=== PATIENT | female | born 1955 | race Caucasian/White ===

== ENCOUNTER → 2016-07-21 | Outpatient (CLI) | payer OTHER ==
[~2016-07-21] MED LIST: HYDR12.55 PO; LEVO75TA5 PO
== END | disposition home or self-care (01) ==
LOC: C.LAB 09:30
PROVIDERS: ATTEND Family Medicine
DX: E03.9 Hypothyroidism, unspecified (principal)

== ENCOUNTER → 2016-07-26 | Outpatient (CLI) | payer OTHER | END | disposition home or self-care (01) | LOC: C.CPL 11:16 | PROVIDERS: ATTEND Family Medicine | DX: Z13.6 Encounter for screening for cardiovascular disorders (principal); Z29.9 Encounter for prophylactic measures, unspecified ==

== ENCOUNTER → 2017-02-09 | Outpatient (CLI) | payer OTHER ==
--- NOTE | 2017-02-10 13:57 | MAMMOGRAPHY REPORT ---
BILATERAL DIGITAL SCREENING MAMMOGRAM TOMOSYNTHESIS WITH CAD: 02/09/2017 CLINICAL HISTORY: Routine screening. Patient has no complaints. TECHNIQUE: Breast tomosynthesis in addition to standard 2D mammography was performed. Current study was also evaluated with a Computer Aided Detection (CAD) system. COMPARISON: Comparison is made to exams dated: 02/10/2015 mammogram, 02/17/2014 mammogram, 08/05/2013 ma mmogram, 07/24/2013 mammogram, 07/18/2012 mammogram, and 07/15/2011 mammogram - [facility] Zoila Herring. BREAST COMPOSITION: The tissue of both breasts is heterogeneously dense, which may obscure small mas ses. FINDINGS: No suspicious masses, calcifications, or areas of architectural distortion are noted in ei ther breast. There has been no significant interval change compared to prior exams. A biopsy marker clip is noted in the left upper outer quadrant. IMPRESSION: ACR BI-RADS CATEGORY 2: BENIGN There is no mammographic evidence of malignancy. A 1 year screening mammogram is recommended. The pa tient will receive written notification of the results. Approximately 10% of breast cancers are not detected with mammography. A negative mammographic report should not delay biopsy if a clinically suggestive mass is present. Lisandra Garcia M.D. /:02/09/2017 15:54:27 [employer]: Rosa Gray [facility] letter sent: Normal 1/2 BI-RADS Code: ACR BI-RADS Category 2: Benign
== END | disposition home or self-care (01) ==
LOC: C.MAMM 12:56
PROVIDERS: ATTEND Physician Assistant
DX: Z12.31 Encounter for screening mammogram for malignant neoplasm of breast (principal); M85.9 Disorder of bone density and structure, unspecified

== ENCOUNTER → 2017-04-25 | Outpatient (CLI) | payer OTHER ==
[2017-04-25 13:08] LABS: BASO % 1.1 %; BASO ABS # 0.06 K/uL (0-0.2); COMPLETE YES; EOS % 2.9 %; HEMATOCRIT 37.3 % (37-47); LYMPH % 32.7 %; LYMPH ABS # 1.82 K/uL (1.2-3.4); MEAN CELL VOLUME 85.6 fL (80-100); MEAN CORPUSCULAR HEMOGLOBIN 28.7 pg (25-34); MEAN CORPUSCULAR HGB CONC 33.5 g/dl (32-36); MEAN PLATELET VOLUME 12.4 fL (7.4-10.4); MONO % 7.2 %; NEUT % 56.1 %; PLATELET COUNT 229 K/uL (130-400); RED BLOOD COUNT 4.36 M/uL (4.2-5.4); WHITE BLOOD COUNT 5.56 K/uL (4.8-10.8)
[2017-04-25 14:13] LABS: ALT/SGPT 25 U/L (12-78); BLOOD UREA NITROGEN 15 mg/dl (7-18); BUN/CREATININE RATIO 28.4 (10-20); CALCIUM 9.3 mg/dl (8.5-10.1); CARBON DIOXIDE 29 mmol/L (21-32); CHLORIDE 103 mmol/L (98-107); CHOLESTEROL 264 mg/dl (0-200); CREATININE 0.52 mg/dl (0.60-1.20); GLUCOSE 92 mg/dl (70-99); POTASSIUM 3.4 mmol/L (3.5-5.1); SODIUM 140 mmol/L (136-145); TRIGLYCERIDES 77 mg/dl (0-150); VERY LOW DENSITY LIPOPROT CALC 15 mg/dl
[2017-04-25 14:24] LABS: ALB/GLOB RATIO 1.4 (0.9-2); ALKALINE PHOSPHATASE 64 U/L (45-117); AST/SGOT 18 U/L (15-37); CHOLESTEROL/HDL RATIO 3.8; HDL CHOLESTEROL 69 mg/dl; LDL CHOLESTEROL CALCULATED 180 mg/dl; THYROID STIMULATING HORMONE 0.793 uIu/ml (0.300-4.500)
== END | disposition home or self-care (01) ==
LOC: C.LABBC 10:19
PROVIDERS: ATTEND Neuromusculoskeletal Medicine & OMM
DX: Z00.00 Encounter for general adult medical examination without abnormal findings (principal); I10 Essential (primary) hypertension; E03.9 Hypothyroidism, unspecified

== ENCOUNTER → 2017-06-22 | Outpatient (CLI) | payer OTHER ==
--- NOTE | 2017-06-22 19:04 | DIAGNOSTIC IMAGING REPORT ---
L LOWER EXT JOINT WITHOUT CLINICAL HISTORY: 62 years-old Female presenting with LT ANKLE PAIN/SWELLING, R/O INFECTION. TECHNIQUE: Multisequence, multiplanar MR imaging of the left ankle was performed without the use of intravenous contrast. IV contrast: None. COMPARISON: Plain radiographs from 06/21/2017. FINDINGS: Localizer images: Unremarkable. Subcutaneous edema noted at the level of the ankle mortise along the medial, dorsal, and lateral aspects and extending into the dorsal lateral mid and forefoot. No bony edema although cystic change is noted within the medial malleolus and medial talus. There is full-thickness cartilage loss of the ankle mortise with deformity of the tibial plafond and secondary to degenerative change. Osteophytosis noted. Chronic avulsion fracture of the inferior pole of the lateral malleolus suspected. Small joint effusion. Fluid noted in the calcaneonavicular joint. Anterior and posterior tibiofibular ligaments intact. Anterior and posterior calcaneofibular ligaments intact. Anterior and peroneal tendons intact. Trace fluid noted along the posterior tendons possibly indicating mild synovitis involving all 3 tendons. Abnormal signal intensity and irregularity of the deltoid ligament suggesting tear. Calcaneonavicular ligament intact. Achilles tendon and plantar fascia normal. No infiltration of the sinus tarsi. Muscular edema noted in both the anterior and posterior compartments of the lower leg. IMPRESSION: 1. 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 2. 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 3. Chronic avulsion fracture of the inferior pole of the lateral malleolus suspected. 4. Small joint effusion. 5. Possible mild tenosynovitis of the posterior tendons. Electronically signed by: Connor Ackerman M.D. 06/22/2017 7:00 PM Dictated Date/Time: 06/22/2017 6:43 PM
== END | disposition home or self-care (01) ==
LOC: C.MRI 17:09
PROVIDERS: ATTEND Orthopaedic Surgery
DX: S93.422A Sprain of deltoid ligament of left ankle, initial encounter (principal); X58.XXXA Exposure to other specified factors, initial encounter; M25.872 Other specified joint disorders, left ankle and foot

== ENCOUNTER → 2018-02-08 | Outpatient (CLI) | payer OTHER ==
[2018-02-08 11:41] LABS: ALBUMIN 3.9 gm/dl (3.4-5.0); ALKALINE PHOSPHATASE 71 U/L (45-117); ALT/SGPT 27 U/L (12-78); AST/SGOT 16 U/L (15-37); BLOOD UREA NITROGEN 16 mg/dl (7-18); CALCIUM 8.9 mg/dl (8.5-10.1); CARBON DIOXIDE 29 mmol/L (21-32); CHOLESTEROL 199 mg/dl (0-200); CREATININE 0.59 mg/dl (0.60-1.20); GLUCOSE 88 mg/dl (70-99); LDL CHOLESTEROL CALCULATED 121 mg/dl; POTASSIUM 3.6 mmol/L (3.5-5.1); SODIUM 139 mmol/L (136-145); TOTAL PROTEIN 6.9 gm/dl (6.4-8.2)
== END | disposition home or self-care (01) ==
LOC: C.LABBC 08:32
PROVIDERS: ATTEND Neuromusculoskeletal Medicine & OMM
DX: I10 Essential (primary) hypertension (principal); E03.9 Hypothyroidism, unspecified; E78.5 Hyperlipidemia, unspecified

== ENCOUNTER → 2018-02-12 | Outpatient (CLI) | payer OTHER ==
--- NOTE | 2018-02-13 14:57 | MAMMOGRAPHY REPORT ---
BILATERAL DIGITAL SCREENING MAMMOGRAM TOMOSYNTHESIS WITH CAD: 02/12/2018 CLINICAL HISTORY: Routine screening. TECHNIQUE: The study was acquired using full field digital technology and interpreted from soft copy. Breast tomosynthesis in addition to standard 2D mammography was performed. Current study was also ev aluated with a Computer Aided Detection (CAD) system. COMPARISON: Comparison is made to exams dated: 02/09/2017 mammogram - [facility], mammogram, 02/17/2014 mammogram, 07/24/2013 mammogram, 07/18/2012 mammogram, and 07/15/2011 mamm ogram - [facility]. BREAST COMPOSITION: The tissue of both breasts is heterogeneously dense, which may obscure small mass es. FINDINGS: There is a stable metallic biopsy marker clip in the upper outer left breast and a stable b enign coarse calcification in the approximate 9:00 anterior left breast. No new suspicious mass, arch itectural distortion or cluster of microcalcifications is seen. IMPRESSION: ACR BI-RADS CATEGORY 1: NEGATIVE There is no mammographic evidence of malignancy. A 1 year screening mammogram is recommended.( [id number]) The patient will receive written notification of the results. Some breast cancers are not detected with mammography. A negative mammographic report should not fermin y biopsy if a clinically suggestive mass is present. Zeinab Arteaga M.D. ay/:02/12/2018 14:40:11 [employer] Head: RT Vielka(Marley)([place]), [facility] letter sent: Normal 1/2 BI-RADS Code: ACR BI-RADS Category 1: Negative
== END | disposition home or self-care (01) ==
LOC: C.MAMM 11:43
PROVIDERS: ATTEND Neuromusculoskeletal Medicine & OMM
DX: Z12.31 Encounter for screening mammogram for malignant neoplasm of breast (principal)